=== PATIENT | female | born 2000 | race Caucasian/White ===

== ENCOUNTER 2025-04-02 02:09 | Emergency (ER) | payer OTHER, SELFPAY ==
[2025-04-02 02:15] VITALS: BP 143/95
--- NOTE | 2025-04-02 03:01 | ED.GENMED ---
History of Present Illness
General
Chief Complaint: Abdominal Symptoms
Source: patient
Exam Limitations: none
Time Seen by Provider: 04/02/25 02:54
History of Present Illness
History of Present Illness:
See MDM
Past History
Past History
ED Past Medical History: Other (IBS)
ED Past Surgical History: None
Social History
Tobacco: Non-smoker
Alcohol: None
Phy Exam
Physical Exam
Physical Exam:
See MDM
Course
Orders/Labs/Results
Orders:
Orders
04/02/25 03:00
0.9% Sodium Chloride 1000 ml [Nss] 1,000 ml IV BOLUS
Ketorolac [Toradol] 15 mg IV NOW STA
04/02/25 03:01
CT Abd/pelvis W Iv Cont Urgent
Comment:
Reason For Exam: lower abd pain, diarrhea
Test Result ONCE
04/02/25 03:14
Complete Blood Count/With Diff Urgent
Comprehensive Metabolic Panel Urgent
HCG, Serum Qualitative Screen Urgent
Lipase Urgent
04/02/25 04:40
Stool Culture Urgent
ABRAHAM Source: Feces/Stool
Specimen Description:
Date Specimen was Collected: 04/02/25
Time Specimen was Collected: 04:25
Abnormal Lab Results
04/02/25
03:14
Hct 35.8 L %
(37.0-47.0)
Absolute Monos (auto) 0.7 H 10^3/uL
(0.1-0.6)
04/02/25 03:14
04/02/25 03:14
Vital Signs
Initial and Last Documented VS:
Initial Vital Signs
Temp Pulse Resp BP Pulse Ox
97.5 F 90 18 143/95 100
04/02/25 02:15 04/02/25 02:15 04/02/25 02:15 04/02/25 02:15 04/02/25 02:15
Last Documented Vital Signs
Temp Pulse Resp BP Pulse Ox
97.5 F 90 18 143/95 100
04/02/25 02:15 04/02/25 02:15 04/02/25 02:15 04/02/25 02:15 04/02/25 03:03
MDM/Problems Addressed
Differential Diagnosis Includes:
Note:
CHIEF COMPLAINT(S)
Diarrhea and abdominal pain.
HISTORY OF PRESENT ILLNESS
The patient is a 25-year-old female with a known history of Irritable Bowel Syndrome (IBS). She presented with diarrhea that started a few days ago, worsening to multiple episodes today. She described the stool as unusually 'grayish' and watery,
especially overnight. She noted persistent abdominal pain which is atypical for her IBS as this current episode has persisted for days. The pain was last noticeably intense about two and a half hours ago and occurs localized to a specific area
rather than generalized. She has not had fever or recent travel, and no dietary changes including consumption of raw milk or untreated water. She reports no urinary symptoms. She has not taken medication for nausea but is experiencing some relief of
diarrhea symptoms.
PAST MEDICAL AND SURGICAL HISTORY
The patient has IBS and has undergone scopes, including colonoscopies, which have not revealed inflammatory bowel disease but have confirmed IBS. She denies past surgeries aside from these scopes.
PHYSICAL EXAM
General: Alert, no acute distress.
Skin: Warm, dry.
Head: Normocephalic, atraumatic
Neck: Appears supple, trachea midline.
Eyes, Ears, Nose, Mouth, and Throat: Mildly dry mucous membranes
Cardiovascular: No signs of cyanosis
Respiratory: Respirations are non-labored.
Abdomen: Non-distended. Mild tenderness to left lower quadrant without rebound
Musculoskeletal: No deformities
Neurological: No focal neurological deficit observed.
Psychiatric: Cooperative, appropriate mood and affect.
PLAN
Plan includes administration of intravenous fluids and consideration of a computed tomography (CT) scan to assess for potential surgical conditions or need for antibiotic therapy. Patient management with fluids and pain relief using ketorolac
(Toradol) via IV, a nonsteroidal anti-inflammatory drug effective for pain relief, was discussed.
DIFFERENTIAL DIAGNOSIS
The Differential Diagnosis includes, in no particular order and is not limited to:
- Gastroenteritis (viral or bacterial)
- Early appendicitis
- Colitis (inflammation of the colon)
- Irritable Bowel Syndrome exacerbation
- Food poisoning
- Small bowel obstruction
- Diverticulitis
- Inflammatory Bowel Disease flare
- Lactose intolerance
- Celiac disease
SUMMARY OF ENCOUNTER
The patient presented with symptoms suggestive of a gastrointestinal disturbance. Management in the emergency department involves ruling out serious conditions that may require surgical intervention or antibiotic treatment through diagnostic testing
and symptomatic relief through IV fluids and pain management.
DISPOSITION
Not explicitly mentioned.
ASSESSMENT
Symptoms of diarrhea and abdominal pain, differential includes common gastrointestinal disturbances such as infection, inflammation, or IBS flare.
EMERGENCY TREATMENTS ADMINISTERED
Intravenous fluids and ketorolac (Toradol) administered for pain relief.
FOLLOW-UP INSTRUCTIONS
Awaiting results of potential stool culture, and possible follow-up depending on outcomes of diagnostic evaluations and symptom progression.
MEDICAL DECISION MAKING
-Chronic conditions affecting care: Irritable Bowel Syndrome (IBS).
-Data:
Category 1:
- My independent review of abdomen reveals tenderness localized in part of the abdomen; however, the generalized abdominal tenderness was absent indicating less likelihood of generalized peritonitis.
- Plan for a CT scan to further investigate the potential need for surgical intervention or antibiotic therapy.
Category 2:
- Input from the patient regarding symptoms and history of IBS influencing the choice to pursue imaging and stool testing.
Category 3:
- Discussion with the patient regarding potential need for imaging and sample collection based on symptom presentation and possible differential diagnoses.
-Risk:
-Consideration of Admission/Observation: Escalation of care including admission/observation was considered given the complexity and risk of the patients presenting complaint, exam findings, and/or their underlying comorbidities. However, ultimately
I feel the patient is safe for outpatient management with close follow-up. Reasoning: Work-up reassuring, does not reveal any acute life/organ-threatening processes, patients symptoms well controlled upon reevaluation, reexamination is reassuring,
vitals are stable, patient agreeable with discharge, reliable for follow-up.
DIAGNOSIS
- Diarrhea, unspecified (ICD-10: R19.7)
- Abdominal pain, localized (ICD-10: R10.84)
04/02/25 - 04:23
Blood work results returned with no significant abnormalities. A formed stool sample was provided by the patient and has been sent to [facility] for culture analysis.
SUMMARY OF ENCOUNTER
The patient, a 25-year-old female with a known history of Irritable Bowel Syndrome (IBS), presented with abdominal pain and diarrhea with a 'grayish' watery stool described as atypical for her IBS. Physical examination indicated localized abdominal
tenderness. A CT scan was performed to rule out conditions such as colitis or early appendicitis, and the results suggested suspicion for viral gastroenteritis. Blood work showed no clinically significant abnormalities. Based on findings and
consultation with the patient, it was decided to manage the condition as suspected viral gastroenteritis.
DISPOSITION
Discharge.
ASSESSMENT
Symptoms suggest viral gastroenteritis in the context of a patient with known IBS, with suspicion supported by CT findings and patient presentation.
EMERGENCY TREATMENTS ADMINISTERED
Ketorolac (Toradol) administered intravenously for pain relief.
PLAN
The patient will be discharged with a prescription for ondansetron (Zofran) for nausea but was advised against taking anti-diarrheal medications.
INDEPENDENT REVIEW OF LABS AND INTERPRETATION OF TESTS
My independent review of the CT scan indicates suspicion for viral gastroenteritis. Blood work results showed no significant abnormalities.
PATIENT EDUCATION AND COUNSELING
The patient was informed about the possibility of viral gastroenteritis and advised on the importance of maintaining hydration and following the prescribed treatment plan. The avoidance of anti-diarrheal medications was discussed to ensure proper
management of the condition.
FOLLOW-UP INSTRUCTIONS
The patient was instructed to follow up with primary care if symptoms persist or worsen.
MEDICATION RECONCILIATION
Ondansetron (Zofran) was prescribed for nausea.
MEDICAL DECISION MAKING
-Chronic conditions affecting care: Irritable Bowel Syndrome (IBS). Differential diagnosis includes gastroenteritis (viral or bacterial), early appendicitis, colitis, IBS exacerbation, food poisoning, small bowel obstruction, diverticulitis,
inflammatory bowel disease flare, lactose intolerance, celiac disease.
-Data:
Category 1:
- My independent review of the CT scan suggests suspicion for viral gastroenteritis.
-Risk:
Consideration of Admission/Observation: Escalation of care including admission/observation was considered given the complexity and risk of the patients presenting complaint, exam findings, and/or their underlying comorbidities. However, ultimately I
feel the patient is safe for outpatient management with close follow-up. Reasoning: Work-up reassuring, does not reveal any acute life-threatening processes, patients symptoms well controlled upon reevaluation, reexamination is reassuring, vitals
are stable, patient agreeable with discharge, reliable for follow-up.
DIAGNOSIS
- Diarrhea, unspecified (ICD-10: R19.7)
- Abdominal pain, localized (ICD-10: R10.84)
*Pulse Oximetry
SaO2: 100
Oxygen Mode of Delivery: Room air
Patient hypoxic: no
*Critical Care Note
Total Time (30-74mins, 75-104mins- exclusive of procedures): Not Applicable
ED Attending Note
-
Portions of this chart may have been created with voice recognition software.� Occasional wrong word or��sound alike� substitutions may have occurred due to the inherent limitations of voice recognition software.
Discharge Plan
Departure
Patient Disposition: Home (Routine Discharge)
Date of Disposition: 04/02/25
Time of Disposition: 05:14
Patient with high blood pressure during this ER visit?: No
Discharge Problem:
Viral gastroenteritis
Instructions: Viral gastroenteritis in adults
Prescriptions:
New
ondansetron 4 mg Tablet,Disintegrating
4 mg PO BIDPRN PRN (Reason: nausea/vomiting) Qty: 10 0RF
No Action
omeprazole 40 MG capsule,delayed release(DR/EC)
40 mg PO DAILY
trazodone 50 mg Tablet
50 mg PO DAILY
famotidine 20 mg Tablet
20 mg PO DAILY
bupropion HCl 150 mg Tablet Extended Release 24 Hr
150 mg PO DAILY
duloxetine [Cymbalta] 60 mg Capsule,Delayed Release(Dr/Ec)
60 mg PO DAILY
Linzess 145 mcg Capsule
145 mcg PO DAILY
Ubrelvy 100 mg Tablet
100 mg PO ONCE PRN (Reason: migraines)
Referrals:
Baljinder Patterson, DO [Family Provider]
Activity Restrictions/Additional Instructions:
Please return for any worsening symptoms.
You may return at any time if you have further concerns.
Please follow up with your doctor at the first available appointment, preferably this week.
Thank you for choosing [facility].
Interventions
Interventions:
*Risk Screen - Suicide Last Done: 04/02/25 02:19
*General Assessment Last Done: 04/02/25 02:31
*Neglect/Abuse Screening Last Done: 04/02/25 02:19
*ED- Fall Risk Assessment Last Done: 04/02/25 02:19
*ED COVID-19 Vaccine History Last Done: 04/02/25 02:19
*ED Influenza Vaccine History Last Done: 04/02/25 02:19
RT-Nuhtks-Mhrxqsjhke Assessment Last Done: 04/02/25 03:19
Discharge Date and Time
Print Language: SYRIAC
[2025-04-02] MEDS: NSS 1000 IV (03:15)
[2025-04-02 03:22] LABS: Hematocrit 35.8 % (37.0-47.0); Hemoglobin 12.0 g/dL (12.0-16.0); Mean Corp Hgb Conc. 33.5 g/dL (33.0-37.0); Mean Corpuscular Volume 83.4 fL (81.0-99.0); Nucleated Red Blood Cells % 0 %; Platelet Count 380 10^3/uL (130-400); Red Cell Dist. Width 12.9 % (11.5-14.5)
[2025-04-02 03:35] LABS: HCG, Serum Qualitative Screen Negative
[2025-04-02] MEDS: TORADOL 15 MG IV (03:41)
[2025-04-02 03:48] LABS: ALT (SGPT) 20 U/L (0-35); AST (SGOT) 19 U/L (14-36); Albumin 4.1 g/dl (3.5-5.0); Alkaline Phosphatase 76 U/L (38-126); Blood Urea Nitrogen 8 mg/dl (7-17); Calcium 9.2 mg/dl (8.4-10.2); Carbon Dioxide 26 mmol/L (22-30); Chloride 105 mmol/L (98-107); Glucose 83 mg/dl (70-99); Lipase 56 U/L (23-300); Potassium 4.2 mmol/L (3.5-5.1); Sodium 136 mmol/L (135-145); Total Protein 7.0 g/dl (6.3-8.2); eGFR > 60.00
[2025-04-02 05:00] VITALS: BP 139/78
== END 2025-04-02 05:31 | disposition home or self-care (01) ==
LOC: EMR 02:09
PROVIDERS: EMERGENCY PHYSICIAN Student in an Organized Health Care Education/Training Program; FAMILY PHYSICIAN Family Medicine
DX: A08.4 Viral intestinal infection, unspecified (principal); K58.9 Irritable bowel syndrome, unspecified
CPT/HCPCS: 96374; 96361; 99284; 74177; 80053; 83690; 84703; 85025; 87045; 87046; 87427; Q9967